=== PATIENT | male | born 1995 | race Caucasian/White ===

== ENCOUNTER 2018-02-22 11:23 | Emergency (ER) | payer OTHER ==
[2018-02-22] MEDS: IBUPROFEN 400 MG TAB PO (14:24)
== END 2018-02-22 14:25 | disposition home or self-care (01) ==
LOC: M ED 11:23
DX: S01.01XD Laceration without foreign body of scalp, subsequent encounter (principal); W22.8XXD Striking against or struck by other objects, subsequent encounter; Y92.9 Unspecified place or not applicable; Y93.9 Activity, unspecified; Y99.9 Unspecified external cause status; Z72.0 Tobacco use
CPT/HCPCS: 70260

== ENCOUNTER → 2020-06-27 | Outpatient (CLI) | payer OTHER ==
[~2020-06-27] MED LIST: IBUP-1114 PO
--- NOTE | 2020-06-27 09:20 | REP ---
INDICATION: HARRIETT GYNECOMASTIA/S/P MASTECTOMY. Patient is status post bilateral lumpectomy at [facility]. Patient feels his lumps have returned. COMPARISON: Mammography no comparison mammography was performed according to the patient. No prior imaging available. TECHNIQUE: Bilateral CC and MLO) view(s) were taken. 3D tomography is carried out. Targeted bilateral subareolar breast ultrasound is performed. FINDINGS: Routine CC and MLO views of each breast are obtained. These demonstrate a gynecomastia pattern with cone shaped fibro glandular tissue in the subareolar regions bilaterally, left a little more extensively than right. No mass lesion is seen. No worrisome skin changes seen. No microcalcification or architectural distortion is seen on either side. 3D tomography shows and these findings as well with no additional abnormality. No suspicious mammographic finding. Sonography: Targeted bilateral subareolar sonography is performed and sonography of the palpable lumps is included. Subareolar for fibroglandular tissue is observed bilaterally consistent with gynecomastia. No sonographic evidence of mass, acoustic shadowing, or architectural distortion. No suspicious sonographic finding. IMPRESSION: BIRADS/ACR category 2 benign mammographic and sonographic findings. Gynecomastia pattern.. This mammogram was interpreted with the aid of an FDA-approved computer-aided detection system. The patient states he had a clinical breast exam in June of 2020. The patient letter being requested is male letter M 2. RECOMMENDATION: Clinical follow-up is advised.. <Electronically signed by Jameson Chappell > 06/27/20 [id number]
== END ==
LOC: M WHC 07:49
PROVIDERS: ATTEND Physician Assistant
DX: N62 Hypertrophy of breast (principal); Z90.13 Acquired absence of bilateral breasts and nipples
CPT/HCPCS: 76642; 77066; G0279

== ENCOUNTER 2021-12-24 12:53 | Day surgery (SDC) | payer OTHER ==
[~2021-12-24] VITALS: Ht 180.3 cm; Wt 81.7 kg
[~2021-12-24 12:53] MED LIST changes: +ACET32TAB PO; +ceFAZolin SOD 2 GM in IV 1 EA IV ONE
[2021-12-24] MEDS ORDERED: LR 1,000 ML IV SCH ×3 (13:40→19:45)
[2021-12-24] MEDS ORDERED: BUPIVACAINE LIPOSOME/PF 1.3% 20ML VIAL (13.3MG/ML)(EXPAREL) As Ordered ONE (17:08)
[2021-12-24] MEDS ORDERED: BUPIVACAINE HCL 0.25% 10ML VIAL As Ordered ONE (17:08)
[2021-12-24] MEDS ORDERED: METOCLOPRAMIDE INJ 10MG/2ML VIAL (J2765 PER 1) As Ordered ONE (17:10)
[2021-12-24] MEDS ORDERED: propofoL 200 MG/20 ML VIAL As Ordered ONE (17:10)
[2021-12-24] MEDS ORDERED: LIDOCAINE 2% 100MG/5ML SDV (FOR ANES.) As Ordered ONE (17:10)
[2021-12-24] MEDS ORDERED: ONDANSETRON 4MG 2ML VIAL As Ordered ONE (17:10)
[2021-12-24] MEDS ORDERED: fentaNYL 100 MCG/2 ML INJECTION As Ordered ONE (17:11)
[2021-12-24] MEDS ORDERED: KETOROLAC 60MG 2ML VIAL As Ordered ONE (17:11)
[2021-12-24] MEDS ORDERED: dexameTHASONE 4 MG/ML 1ML VIAL (J1100 PER 1MG) As Ordered ONE (17:11)
[2021-12-24] MEDS ORDERED: MIDAZOLAM INJ 2MG/2ML VIAL (J2250 PER 1MG) As Ordered ONE (17:11)
[2021-12-24] MEDS ORDERED: fentaNYL 100 MCG/2 ML INJECTION IV PRN (18:40)
[2021-12-24] MEDS ORDERED: HYDROMORPHONE HCL 0.5 MG/ 0.5 ML SYRINGE (J1170 PER 1) IV PRN (18:40)
[2021-12-24] MEDS ORDERED: ONDANSETRON 4MG 2ML VIAL IV PRN (18:40)
[2021-12-24] MEDS ORDERED: oxyCODONE 5MG TAB PO PRN (18:40)
[2021-12-24 20:05] VITALS: BP 132/68
== END 2021-12-24 20:00 | disposition home or self-care (01) ==
LOC: M SDC 12:53
PROVIDERS: ATTEND Orthopaedic Surgery
DX: T84.84XA Pain due to internal orthopedic prosthetic devices, implants and grafts, initial encounter (principal); M25.511 Pain in right shoulder; F17.200 Nicotine dependence, unspecified, uncomplicated
CPT/HCPCS: 20670; C9290; J0690; J1100; J1885; J2250; J2405; J2765; J3010